=== PATIENT | female | born 1980 | race Asian ===

== ENCOUNTER → 2018-12-02 | Outpatient (CLI) | payer OTHER ==
[2018-12-03 09:01] LABS: RUBEOLA (MEASLES) IGG >300.0 AU/mL (Immune >29.9)
[2018-12-04 18:57] LABS: RUBELLA IGM ANTIBODY <20.0 AU/mL (0.0-19.9)
== END | disposition home or self-care (01) ==
LOC: EMPHLTH 08:25
PROVIDERS: ATTEND Internal Medicine
DX: Z02.1 Encounter for pre-employment examination (principal)
CPT/HCPCS: 86706; 86735; 86762; 86765; 86787